=== PATIENT | female | born 1985 | race African-American/Black ===

== ENCOUNTER 2017-07-09 13:05 | Emergency (ER) | payer SELFPAY ==
[2017-07-09 13:48] VITALS: BP 103/69; PULSE 70; TEMP 97.9; BMI 26.3
[2017-07-09] MEDS ORDERED: KETOROLAC TROMETHAMINE 60 MG/2 ML VIAL IM ONE (15:12)
[2017-07-09] MEDS ORDERED: KETOROLAC TROMETHAMINE 60 MG/2 ML VIAL ONE (15:18)
--- NOTE | 2017-07-09 15:38 | PDOC ---
History of Present Illness - General Chief Complaint: Injury Stated Complaint: FALL/ BACK PAIN Time Seen by Provider: 07/09/17 14:35 History Source: Patient Exam Limitations: No Limitations - History of Present Illness Initial Comments: 07/09/17 15:35 CHIEF COMPLAINT: Accidental fall yesterday, pain to lower back HISTORY OF PRESENT ILLNESS: Patient is a 31-year-old female, no significant medical history currently on no medication reports yesterday she slipped and fell onto buttock now with pain to generalized lower back nonradiating. Patient denies any neurosensory deficits, no bowel or bladder difficulty, pain when standing from sitting position any bleeding. Steady gait. No sore throat Drop or saddle anesthesia. PMH: [None] MEDS:[None ALLERGIES: [None] PCP: [None] REVIEW OF SYSTEMS: GENERAL/CONSTITUTIONAL: Awake alert and oriented HEAD, EYES, EARS, NOSE AND THROAT: No change in vision. No facial edema, no bruising. NO active bleeding. Nares intact. RESPIRATORY: No cough, wheezing, or hemoptysis. CARDIAC: Denies chest pain, no shortness of breathe. MUSCULOSKELETAL: No spinal point tenderness, Good ROM to all four extremities. NO CVA tenderness. [No] lateral neck pain. GI/: Denies abdominal pain, no nausea or vomiting, no bloody stool, no Hematuria. SKIN : No erythema or bruising noted. No abrasion or lacerations. NEUROLOGIC: No loss of consciousness, no numbness or tingling. PHYSICAL EXAM: GENERAL: Awake and alert and oriented x3. EYES: The pupils are equal, round, and reactive to light, with clear, conjunctiva. Good extraocular movement. No nystagmus NOSE: No nasal trauma . Midface stable MOUTH: Teeth intact. EARS: The ear canals and tympanic membranes are normal without trauma. No drainage. NECK: No Lower cervical C-spine tenderness, no pain with chin to chest. CHEST: The lungs are clear without crackles, or wheezes. No subcutaneous emphysema. No crepitus. HEART: Heart is regular rhythm, with normal S1 and S2, no murmurs. ABDOMEN: The abdomen is soft and nontender with normal bowel sounds. There is no guarding or rebound. MUSCULOSKELETAL: No spinal point tenderness. Pain to generalized lower back No bruising or erythema. Pelvis stable. RECTAL: Patient refused. EXTREMITIES: Extremities are normal. No visible traumatic injury. NEUROLOGICAL:Mental status: The patient is oriented x3. No Generalized headache , Romberg [-] Gait: Normal. Heel and toe walking are normal. Tandem gait is normal. SKIN: Without edema, erythema or bruising. No abrasions or lacerations. Past History - Past Medical History Allergies/Adverse Reactions: Allergies Allergy/AdvReac Type Severity Reaction Status Date / Time torsten Allergy Verified 07/09/17 13:44 shellfish derived Allergy Verified 07/09/17 13:44 Home Medications: Ambulatory Orders Cyclobenzaprine HCl [Flexeril 10 mg] 10 mg PO BID PRN #20 tablet 07/09/17 Oxycodone HCl/Acetaminophen [Percocet 5-325 mg Tablet] 1 - 2 tab PO Q6H #16 tab MDD 8 07/09/17 Asthma: Yes CVA: No COPD: No Thyroid Disease: Yes (Hypo) - Surgical History Abdominal Surgery: Yes (umbilical hernia) - Immunization History Immunization Up to Date: Yes - Suicide/Smoking/Psychosocial Hx Smoking History: Never smoked Have you smoked in the past 12 months: No Information on smoking cessation initiated: No Hx Alcohol Use: No Drug/Substance Use Hx: No Substance Use Type: None *Physical Exam - Vital Signs Last Vital Signs Temp Pulse Resp BP Pulse Ox 97.9 F 70 15 103/69 99 07/09/17 13:44 07/09/17 13:44 07/09/17 13:44 07/09/17 13:44 07/09/17 13:44 ED Treatment Course - RADIOLOGY Radiology Studies Ordered: Category Date Time Status SPINE-LUMBAR SACRAL [RAD] Stat Radiology 07/09/17 15:12 Ordered - Medications Given in the ED: ED Medications Discontinued Medications Generic Name Dose Route Start Last Admin Trade Name Freq PRN Reason Stop Dose Admin Ketorolac Tromethamine 60 mg 07/09/17 15:12 07/09/17 15:23 Toradol Injection - IM 07/09/17 15:13 60 mg ONCE ONE Administration Medical Decision Making - Medical Decision Making 07/09/17 15:37 A/P: Patient here with lower back pain status post fall. Urine , urinalysis and x-ray of lumbosacral ordered. 07/09/17 19:10 Negative for acute fracture dislocation, I will discharge patient home on Percocet as needed for pain and Flexeril follow-up with orthopedics in one week if pain persists. Patient is ambulating without difficulty. She reports no relief after Toradol. I discussed the physical exam findings, ancillary test results and final diagnoses with the patient. I answered all of the patient's questions. The patient was satisfied with the care received and felt comfortable with the discharge plan and treatment plan. The patient will call to arrange follow-up and will return to the Emergency Department with any new, persistent or worsening symptoms. 07/09/17 19:12 *DC/Admit/Observation/Transfer Diagnosis at time of Disposition: Fall Qualifiers: Encounter type: initial encounter Qualified Code(s): W19.XXXA - Unspecified fall, initial encounter Back pain Qualifiers: Back pain location: low back pain Chronicity: acute Back pain laterality: bilateral Sciatica presence: without sciatica Qualified Code(s): M54.5 - Low back pain - Discharge Dispostion Disposition: HOME Condition at time of disposition: Stable Admit: No - Prescriptions Prescriptions: Cyclobenzaprine HCl [Flexeril 10 mg] 10 mg PO BID PRN #20 tablet PRN Reason: Pain Oxycodone HCl/Acetaminophen [Percocet 5-325 mg Tablet] 1 - 2 tab PO Q6H #16 tab MDD 8 - Referrals - Patient Instructions Printed Discharge Instructions: DI for Low Back Pain Additional Instructions: 1. Please return to the emergency department with any numbness, tingling, weakness, numbness or tingling to groin or legs, or loss of bowel or bladder function. 2. Use pain medication as ordered. 3. Please is to followup in the office of Dr. Reyes for evaluation within a week if no improvement. 4. Ice or heat 5. Refrain from lifting anything above 10 pounds, until pain resolved. - Post Discharge Activity Forms/Work/School Notes: Back to Work
[2017-07-09 15:55] LABS: HCG,QUALITATIVE URINE NEGATIVE
[2017-07-09 15:56] LABS: URINE APPEARANCE SLCLOUDY; URINE BILIRUBIN NEGATIVE (NEGATIVE); URINE BLOOD NEGATIVE (NEGATIVE); URINE COLOR YELLOW; URINE GLUCOSE (UA) NEGATIVE (NEGATIVE); URINE KETONE TRACE (NEGATIVE); URINE NITRITE NEGATIVE (NEGATIVE); URINE PROTEIN NEGATIVE (NEGATIVE); URINE UROBILINOGEN NEGATIVE mg/dL (0.2-1.0)
[2017-07-09 16:02] LABS: URINE LEUK ESTERASE 2+ (NEGATIVE)
[2017-07-09 16:04] LABS: EPI CELLS RARE /HPF (FEW); URINE MUCUS MANY
== END 2017-07-09 16:47 | disposition home or self-care (01) ==
LOC: JERFT 13:05
PROC: 3E0233Z Introduction of Anti-inflammatory into Muscle, Percutaneous Approach (ICD-10-PCS; principal; 2017-07-09)
DX: M54.5 Low back pain (principal); W18.39XA Other fall on same level, initial encounter; Y93.89 Activity, other specified; Y92.9 Unspecified place or not applicable
CPT/HCPCS: 72100-TC; 81003; 81015; 84703; 99281-25

== ENCOUNTER 2019-01-08 09:51 | Emergency (ER) | payer SELFPAY, OTHER | END 2019-01-08 10:56 | disposition home or self-care (01) | LOC: JERFT 09:51 ==